=== PATIENT | female | born 1965 | race Caucasian/White ===

== ENCOUNTER 2018-08-25 16:16 | Emergency (ER) | payer MEDICAID ==
[~2018-08-25] VITALS: Ht 147.3 cm; Wt 74.0 kg
[2018-08-25 19:01] LABS: CLARITY URINE TURBID (CLEAR); COLOR URINE RED (YELLOW); KETONES URINE 1+ (NEGATIVE); LEUKOCYTE ESTERASE URINE 1+ (NEGATIVE); NITRITE URINE NEGATIVE (NEGATIVE); OCCULT BLOOD URINE 3+ (NEGATIVE); PH URINE 6.5 (4.5-8.0); PROTEIN URINE 2+ (NEGATIVE)
[2018-08-25 19:48] LABS: BASOPHILS % 0.8 % (0.0-2.0); EOSINOPHILS % 1.2 % (0.0-5.0); HEMATOCRIT. 38.6 % (36.0-48.0); HEMOGLOBIN. 13.2 g/dL (12.0-16.0); LYMPHOCYTES % 32.2 % (20.0-50.0); MEAN CORPUSCULAR HEMOGLOBIN 29.6 pg (28.0-32.0); MEAN CORPUSCULAR VOLUME 86.7 fL (81.0-99.0); MEAN PLATELET VOLUME 8.9 fl (7.4-10.4); MONOCYTES % 8.8 % (2.0-8.0); PLATELET 184 x1000/uL (130-400); RED BLOOD CELL COUNT 4.45 mill/uL (4.2-5.4); RED CELL DISTRIBUTION WIDTH 14.6 % (11.6-14.6)
[2018-08-25 19:53] LABS: CHLORIDE 106 mEq/L (98-107)
[2018-08-25 20:04] LABS: B-HCG QUANTITATIVE < 1 mIU/mL (<3)
[2018-08-25] MEDS ORDERED: NITROFURANTOIN 100MG M/M CAPSULE PO ONE (21:00)
[2018-08-26 02:11] VITALS: BP 118/73
== END 2018-08-26 02:12 | disposition home or self-care (01) ==
LOC: ER 16:50 → CANBEDREQ 08-26 03:18
DX: N39.0 Urinary tract infection, site not specified (principal)
CPT/HCPCS: 36415; 76830; 76856; 84702; 86850; 86900; 99284

== ENCOUNTER 2018-12-05 18:46 | Emergency (ER) | payer MEDICAID ==
[~2018-12-05] VITALS: Ht 147.3 cm; Wt 71.0 kg
[2018-12-05 23:09] VITALS: BP 106/88
== END 2018-12-06 02:07 | disposition left against medical advice (07) ==
LOC: ER 19:56
DX: R10.9 Unspecified abdominal pain (principal); Z53.21 Procedure and treatment not carried out due to patient leaving prior to being seen by health care provider